=== PATIENT | male | born 1955 | race Caucasian/White ===

== ENCOUNTER 2022-01-03 11:06 | Emergency (ER) | payer OTHER, MEDICARE ==
[2022-01-03] MEDS ORDERED: BACIGUENT PACKET ONE (11:11)
[2022-01-03] MEDS ORDERED: XYLOCAINE 1% HCL 20 ML MDV ONE (12:14)
--- NOTE | 2022-01-03 12:27 | XRAY ---
Indication: Pain following fall. Multiple contiguous axial images obtained through the head without contrast. Comparison: None Normal appearing brain parenchyma, ventricles, and bony calvarium. Visualized paranasal sinuses and mastoid air cells are clear. Impression: Normal CT head without contrast exam.
--- NOTE | 2022-01-03 12:27 | XRAY ---
Indication: Pain following fall. Comparison: None 2 view right forearm demonstrates tiny olecranon process spur. No other bony, articular, or soft tissue abnormalities.
--- NOTE | 2022-01-03 12:31 | XRAY ---
Indication: Pain following fall. Multiple contiguous axial images obtained through the cervical spine. Sagittal and coronal reformatted images obtained. Comparison: None Axial images negative for acute fracture, suspicious bony lesions, or spinal canal stenosis. Mild/moderate C3-C6 degenerative endplate spurring and mild right C4-C6 degenerative facet hypertrophy. Sagittal and coronal reformatted images demonstrates lordotic straightening, positional versus paraspinal spasm. C3-C6 degenerative disc space narrowing. C3 segment demonstrates 2 mm retrolisthesis on C4. Otherwise no acute compression fracture, subluxation, or jumped facet. Normal appearing craniocervical junction. Visualized noncontrasted soft tissues demonstrates 1.5 cm right thyroid hypodense nodule/cyst and tiny right thyroid calcification. Lung apices are clear. Impression: 1. Cervical lordotic straightening, positional versus paraspinal spasm. 2. Negative for acute fracture. 3. Multilevel degenerative spondylolisthesis and minimal grade 1 C3 retrolisthesis. 4. Incidental right thyroid hypodense nodule/cyst better evaluated with outpatient sonogram if clinically warranted.
--- NOTE | 2022-01-03 12:34 | XRAY ---
Indication: Pain following fall. Multiple contiguous axial images obtained through the facial bones. Sagittal and coronal reformatted images obtained. Comparison: None A few bilateral dental amalgams produces beam artifact. No acute fracture, suspicious bony lesions, or radiopaque foreign body. Orbits including roof, hidalgo, and floors are intact. Paranasal sinuses and nasal passages are clear. Moderate nasal septal deviation to the right. Visualized noncontrasted soft tissues including globes are unremarkable. Impression: Nasal septal deviation. Remaining CT facial bones negative.
[2022-01-03] MEDS ORDERED: HYDROCODONE-ACETAMIN 10-325 MG PO ONE (12:42)
--- NOTE | 2022-01-03 12:47 | ERPHSYRPT ---
- History of Present Illness Source: patient Exam Limitations: no limitations Patient Subjective Stated Complaint: Laceration Triage Nursing Assessment: Patient ambulated back to ED and transferred self to bed. Patient A+O X3. Patient's skin pink, warm and dry. Patient complains of lacerations to right arm and left side of eye. Patient states he is having problems with his right leg and is in the process of being worked up for it. Patient states he was walking up stairs when his right leg gave out causing him to fall down 5 stairs. Patient has 3 small skin tears noted to right forearm. Patient complains of right forearm pain. Patient has laceartion noted to left ey e 2cm X 1 cm. Patient complains of headache 03/29. Physician History: Pt fell up steps at [employer] store before arrival hitting his L eyelid/eyebrow area causing a laceration. Pt denies LOC but was dazed. He has a CHURCH/cervical pain/R forearm abrasion. Tetanus is UTD. Pt denies T-Lspine pain/Hip pain/LE pain/chest pain/focal weakness. He states that he fell when his leg gave out due to lumbar pain. Occurred: just prior to arrival Severity: moderate Head Injury Location: occipital Method of Injury: fell Loss of Consciousness: no loss of consciousness, dazed Associated Symptoms: No nausea, No vomiting, No abdominal pain, No shortness of breath, No heartburn, No diaphoresis, No cough, No chills, No chest pain, No fever, No headaches, No loss of appetite, No malaise, No rash, No syncope, No seizure Allergies/Adverse Reactions: hydroxychloroquine [From Plaquenil] Allergy (Verified 01/03/22 11:08) Hx Tetanus, Diphtheria Vaccination/Date Given: Yes Hx Influenza Vaccination/Date Given: No Hx Pneumococcal Vaccination/Date Given: No Immunizations Up to Date: Yes Travel Risk - International Travel Have you traveled outside of the country in past 3 weeks: No - Coronavirus Screening Are you exhibiting any of the following symptoms?: No Close contact with a COVID-19 positive Pt in past 14-21 Days: No - Vaccine Status Have you recieved a Covid-19 vaccination: Yes 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 - Vaccination Dates Date of 2cond Vaccination (if applicable): Nov 2020 - Review of Systems Constitutional: No Symptoms Eyes: No Symptoms Ears, Nose, & Throat: No Symptoms Respiratory: No Symptoms Cardiac: No Symptoms Abdominal/Gastrointestinal: No Symptoms Genitourinary Symptoms: No Symptoms Musculoskeletal: No Symptoms, Neck Pain Skin: No Symptoms Neurological: No Symptoms Psychological: No Symptoms Endocrine: No Symptoms Hematologic/Lymphatic: No Symptoms Immunological/Allergic: No Symptoms - Past Medical History Neurological History: No Pertinent History ENT History: No Pertinent History Cardiac History: Hypertension Respiratory History: No Pertinent History Endocrine Medical History: No Pertinent History Musculoskeletal History: Rheumatoid Arthritis GI Medical History: Irritable Bowel History: No Pertinent History Psycho-Social History: No Pertinent History Male Reproductive Disorders: No Pertinent History Other Medical History: nutcracker esophagus - Past Surgical History Past Surgical History: No Neuro Surgical History: No Pertinent History Cardiac: No Pertinent History Respiratory: No Pertinent History Gastrointestinal: No Pertinent History Genitourinary: No Pertinent History Musculoskeletal: Orthopedic Surgery Male Surgical History: No Pertinent History Other Surgical History: back surgery lumbar - Social History Smoking Status: Never smoker Exposure to second hand smoke: No Drug Use: none Patient Lives Alone: No Significant Family History: no pertinent family hx - Nursing Vital Signs Nursing Vital Signs: Initial Vital Signs Temperature 97.5 F 01/03/22 11:09 Pulse Rate 55 L 01/03/22 11:09 Respiratory Rate 18 01/03/22 11:09 Blood Pressure 195/94 01/03/22 11:09 O2 Sat by Pulse Oximetry 96 01/03/22 11:09 Pain Scale Pain Intensity 7 Hypertensive/Ethan - [place] Coma Score Best Eye Response (Dm): (4) open spontaneously Best Verbal Response ([place]): (5) oriented Best Motor Response (Dm): (6) obeys commands [place] Total: 15 - Physical Exam General Appearance: no apparent distress Head Injury: lacerations (L eyebrow/eyelid lac 2cm x1cm) Eye Exam: bilateral eye: normal inspection, PERRL, EOMI ENT Exam: airway nml, No evidence of ENT injury, No dental injury, No clear fluid (ears), No clear fluid (nose) Neck Exam: supple, trachea midline, tenderness (C-spine later became TTP after initially being NTTP) Cardiovascular/Respiratory Exam: chest non-tender, normal breath sounds, regular rate/rhythm, heart sounds normal Gastrointestinal/Abdominal Exam: soft, non tender, no distention Back Exam: normal inspection, normal range of motion, No CVA tenderness, No vertebral tenderness Extremity Exam: normal capillary refill, swelling (R dorsal forearm), No calf tenderness Mental Status Exam: alert, oriented x 3, 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 Exam: normal hearing, normal speech, PERRL Coordination/Gait Exam: normal gait, normal cerebellar function, negative Romberg's sign Motor/Sensory Exam: no motor deficit, no sensory deficit, no pronator drift, negative Babinski's sign DTR Exam: bicep (R): 2+, bicep (L): 2+ Skin Exam: normal color, warm, dry Lymphatic Exam: No adenopathy SpO2 Interpretation: normal SpO2: 96 O2 Delivery: Room Air Procedures - Laceration/Wound Repair Left Other Wound Location: Left (L eyelid/eyebrow) Wound Length (cm): 2 Wound's Depth, Shape: superficial Wound Explored: clean Irrigated: No Hibiclens Prep: Yes Anesthesia: local, 1% Lidocaine Volume Anesthetic (ccs): 8 Wound Repaired With: sutures Suture Size/Type: 5-0 (5.0 Ethilon x10) Number of Sutures: 10 Layer Closure?: No - Course Nursing assessment & vital signs reviewed: Yes - Radiology Exams Forearm X-ray Interpretation: Discussed w/ radiologist (No fracture) - CT Exams Head CT Interpretation: Discussed w/radiologist (Neg per rad) Maxillofacial Bones CT Interpretation: Discussed w/radiologist (NAD) Cervical Spine CT Interpretation: Discussed w/radiologist (Nothing acute/thyroid nodule) Ordered Tests: Active Orders 24 hr Category Date Time Status Wound Care STAT Care 01/03/22 12:52 Completed CERVICAL SPINE WO CONTRAST [CT] Stat Exams 01/03/22 11:59 Completed FACIAL BONES WO CONTRAST [CT] Stat Exams 01/03/22 11:17 Completed FOREARM Stat Exams 01/03/22 Completed HEAD WITHOUT CONTRAST [CT] Stat Exams 01/03/22 11:17 Completed Medication Summary Discontinued Medications Generic Name Dose Route Start Last Admin Trade Name Freq PRN Reason Stop Dose Admin Hydrocodone Bitart/Acetaminophen 1 tablet 01/03/22 12:42 01/03/22 12:44 Hydrocodone/Acetamin 10-325 Mg Tablet PO 01/03/22 12:43 1 tablet STAT ONE Administration Bacitracin Zinc Confirm 01/03/22 11:11 Bacitracin Packet 0.9 Gm Pckt Administered 01/03/22 11:12 Dose 1 gm .ROUTE .STK-MED ONE Bacitracin Zinc 0.9 gm 01/03/22 12:52 01/03/22 12:53 Bacitracin Packet 0.9 Gm Pckt TP 01/03/22 12:53 0.9 gm STAT ONE Administration Lidocaine HCl Confirm 01/03/22 12:14 Lidocaine Hcl 1% 20 Ml Mdv 20 Ml Ml Administered 01/03/22 12:15 Dose 10 ml .ROUTE .STK-MED ONE Lidocaine HCl 10 ml 01/03/22 12:52 01/03/22 12:53 Lidocaine Hcl 1% 20 Ml Mdv 20 Ml Ml IJ 01/03/22 12:53 10 ml STAT ONE Administration - Progress Progress: improved Progress Note: 01/03/22 13:00 Norco10 po x1 Counseled pt/family regarding: diagnosis, need for follow-up, rad results - Departure Departure Disposition: Home Clinical Impression: Eyebrow laceration, Minor head injury, Cervical strain, acute, Contusion of forearm, right Condition: Stable Critical Care Time: No Referrals: DOCTOR,NO FAMILY [Primary Care Provider] - Follow up/PCP as directed Instructions: Wound Care (DC), Contusion (DC), Minor Head Injury (DC), Cervical Muscle Strain (DC) Additional Instructions: Ice to contused areas for 12-24 hours Pain meds as needed Keep laceration dry for 2 days, then wash 1-2 times a day with soap/water Watch for signs of infection-redness/pain/pus/temperature greater than 100.5 Sutures out in 1 week Return to ER for worsening of condition Prescriptions: Hydrocodone/Acetaminophen [Hydrocodone-Acetamin 10-325 mg] 1 tablet PO Q4H PRN PRN #7 tablet MDD 4 tabs PRN Reason: Pain
[2022-01-03] MEDS ORDERED: BACIGUENT PACKET TP ONE (12:52)
[2022-01-03] MEDS ORDERED: XYLOCAINE 1% HCL 20 ML MDV IJ ONE (12:52)
[2022-01-03 12:55] VITALS: BP 168/75; PULSE 60
[2022-01-03 12:59] VITALS: O2SAT 96
== END 2022-01-03 13:13 | disposition home or self-care (01) ==
LOC: ED 11:06
DX: S01.112A Laceration without foreign body of left eyelid and periocular area, initial encounter (principal); S09.90XA Unspecified injury of head, initial encounter; S16.1XXA Strain of muscle, fascia and tendon at neck level, initial encounter; S50.11XA Contusion of right forearm, initial encounter; W10.9XXA Fall (on) (from) unspecified stairs and steps, initial encounter; Y93.01 Activity, walking, marching and hiking; Y92.512 Supermarket, store or market as the place of occurrence of the external cause; I10 Essential (primary) hypertension; Z79.891 Long term (current) use of opiate analgesic
CPT/HCPCS: 12011; 70450; 70486; 72125; 73090; 96372; 99284; A9270-GY